=== PATIENT | male | born 1970 | race Hispanic/Latino ===

== ENCOUNTER 2020-07-10 11:40 | Day surgery (SDC) | payer OTHER ==
[2020-07-10] MEDS ORDERED: HYDROmorphone 1 MG/1 ML INJ IV PRN ×2 (12:56)
[2020-07-10] MEDS ORDERED: ONDANSETRON 4 MG/2 ML INJ IV PRN (12:56)
--- NOTE | 2020-07-10 12:57 | Anesthesia Day of Surgery ---
Anesthesia Day of Surgery - Day of Surgery Patient Examined: Yes Patient H&P Reviewed: Yes Patient is NPO: Yes
--- NOTE | 2020-07-10 12:58 | Anesthesia Consultation ---
Anesthesia Consult and Med Hx Date of service: 07/10/20 - Airway Anesthetic Teeth Evaluation: Crowns ROM Head & Neck: Adequate Mental/Hyoid Distance: Adequate Mallampati Class: Class II Intubation Access Assessment: Good - Pre-Operative Health Status ASA Pre-Surgery Classification: ASA2 Proposed Anesthetic Plan: General - Pulmonary Hx Smoking: No Hx Sleep Apnea: No (DOROTHEA PRE SCREEN HIGH RISK) - Cardiovascular System Hx Hypertension: Yes (NO MEDS AT PRESENT) - Central Nervous System Hx Psychiatric Problems: Yes (Bipolar/Anxiety/Depression) - Endocrine Hx Renal Disease: Yes (Stones/hydro) Hx Non-Insulin Dependent Diabetes: No - Hematic Hx Anemia: No - Other Systems Hx Cancer: No
[2020-07-10] MEDS ORDERED: LACTATED RINGERS 1,000 ML IV SCH (13:00)
[2020-07-10] MEDS ORDERED: MIDAZOLAM 2 MG/2 ML INJ IV NR (13:00)
[2020-07-10] MEDS ORDERED: ONDANSETRON 4 MG/2 ML INJ ONE (15:55)
[2020-07-10] MEDS ORDERED: LIDOCAINE MPF (2%) 20 MG/1 ML VIAL 5 ML ONE (15:55)
[2020-07-10] MEDS ORDERED: propofoL 200 MG/20 ML VIAL IV ONE (15:56)
[2020-07-10] MEDS ORDERED: fentaNYL 100 MCG/2 ML INJ ONE (15:56)
[2020-07-10] MEDS ORDERED: WATER FOR IRRIG STERILE 1,000 ML BOTTLE IR ONE (16:09)
[2020-07-10] MEDS ORDERED: WATER FOR IRRIG STERILE 2000 ML IR ONE (16:09)
[2020-07-10] MEDS ORDERED: IOHEXOL 300 MG/ML 50ML IV ONE (16:09)
[2020-07-10] MEDS ORDERED: LACTATED RINGERS 1,000 ML ONE (16:27)
[2020-07-10] MEDS ORDERED: dexAMETHasone 20 MG/5 ML VIAL ONE (16:27)
[2020-07-10] MEDS ORDERED: KETOROLAC 30 MG/1 ML INJ ONE (17:15)
--- NOTE | 2020-07-10 17:16 | Post Operative Note ---
Date of procedure: 07/10/20 Pre-op diagnosis: r ureteral stones Post-op diagnosis: other (bnc stricture) Findings: as above Procedure: cysto ureteroscopy laser stent Anesthesia: CITNHYAA Surgeon: KARLO CANAS Pathology: list (stone) Specimen disposition: given to patient/family Condition: stable Disposition: PACU
--- NOTE | 2020-07-10 17:17 | Discharge Summary ---
Short Stay Discharge Plan Activity: other (no straining ) Weight Bearing Status: Full Weight Bearing Diet: low fat Special Instructions: other (inc fluids ) Durable Medical Equipment Needed Upon Discharge: other ( jstent) Follow up with: FRANKLIN TRAYLOR MD [Primary Care Provider] - 7 Days KARLO CANAS MD [Staff Physician] - 7 Days
--- NOTE | 2020-07-10 18:29 | XRay Report ---
ABDOMEN 2 VIEW INDICATION / CLINICAL INFORMATION: RIGHT URETERAL STONE.. COMPARISON: None available. FINDINGS: TUBES / LINES: 2 radiographs are provided, one at 4:43 PM and the other at 5:23 PM. Between the 2 rad iographs there is interval exchange of a right-sided double-J ureteral stent. There is satisfactory p ositioning of the stent. The proximal/renal aspect is only slightly curled and does not demonstrate a full pigtail loop. BOWEL GAS PATTERN: No significant abnormality. FREE AIR / EXTRALUMINAL GAS: None seen. ADDITIONAL FINDINGS: No definite nephrolithiasis is visualized. IMPRESSION: 1. Interval replacement of a right-sided double-J ureteral stent. Note is made that the proximal/german[place] l aspect of the stent does not make a full pigtail loop. 2. No nephrolithiasis is visualized. Signer Name: Javier Frausto MD Signed: 07/10/2020 6:24 PM Workstation Name: [id number]
[2020-07-10 18:32] VITALS: BP 139/94
--- NOTE | 2020-07-10 18:47 | Operative Report ---
DATE OF SURGERY: 07/10/2020 PREOPERATIVE DIAGNOSIS: Impacted right ureteral stone, severe urethral stricture disease. POSTOPERATIVE DIAGNOSIS: Impacted right ureteral stone, severe urethral stricture disease. PROCEDURE PERFORMED: Cystoscopy, stent exchange, right ureteroscopy, laser of stone, extraction of fragments. SURGEON: Dr. Sudheer Shaffer. ANESTHESIA: General. FINDINGS: This is a gentleman who had a procedure last week. There was a severe bladder neck contracture and urethral stricture disease. We opened that up. The stone was impacted. We placed a double-J to come back at a 2nd stage; this is a 2nd stage procedure. DESCRIPTION OF PROCEDURE: The patient was brought to the OR and placed on the operating table. Following induction of anesthesia, placed in lithotomy position, prepped and draped in the usual sterile fashion. Cystourethroscopy showed a stone at the level of the mid and lower ureter. This was along the double-J stent. The stent was withdrawn, the wire coiled in the kidney, and using double dual-lumen catheter, a 2nd wire was placed. Ureteroscopy revealed a stone, which was stuck to portion of the ureteral wall and it was freed up. Using the single action pump it freed it up and then we lasered it into at least 8 -10 pieces. Some of the pieces were withdrawn. The bigger piece was given to the patient. The patient tolerated the procedure well. A 7-Thai coiled in the kidney and bladder; we left the string. He was brought to recovery in stable condition. TID: [id number] RECEIPT: [id number] LEILA
--- NOTE | 2020-07-10 20:20 | Post Anesthesia Evaluation ---
- Post Anesthesia Evaluation Patient Participated: Yes Airway Patent: Yes Stable Respiratory Function: Yes Nausea/Vomiting: No Temp > 96.8F: Yes Pain Manageable: Yes Adequeate Hydration: Yes Anesthesia Complications: No Block Receding Appropriately: Not Applicable Patient on Ventilator: No
== END 2020-07-10 18:30 | disposition home or self-care (01) ==
LOC: OR 11:40
PROVIDERS: ATTEND Urology
DX: N20.1 Calculus of ureter (principal); N35.919 Unspecified urethral stricture, male, unspecified site; G43.909 Migraine, unspecified, not intractable, without status migrainosus; E78.00 Pure hypercholesterolemia, unspecified; I10 Essential (primary) hypertension; F31.9 Bipolar disorder, unspecified; F41.9 Anxiety disorder, unspecified; Z88.8 Allergy status to other drugs, medicaments and biological substances; Z79.899 Other long term (current) drug therapy; Z90.49 Acquired absence of other specified parts of digestive tract; Z98.890 Other specified postprocedural states
CPT/HCPCS: 52356; 74019; A4217; C1769; C2617; J1100; J1170; J1885; J1956; J2250; J2405; J2704; J3010; J7120